=== PATIENT | female | born 1960 | race Two or more races ===

== ENCOUNTER 2016-09-01 11:34 | Emergency (ER) | payer BC, OTHER ==
[~2016-09-01] VITALS: Ht 162.6 cm; Wt 122.0 kg
[2016-09-01 12:44] LABS: Basophils # (auto) 0.1 uL; Basophils % (auto) 0.9 % (0.0-2.0); Eosinophils # (auto) 0.3 uL; Eosinophils % (auto) 4.5 % (0.0-7.0); Hematocrit 40.3 % (36.0-46.0); Hemoglobin 13.3 g/dL (12.2-16.2); Lymphocytes # (auto) 2.3 uL; Lymphocytes % (auto) 31.5 % (10.0-50.0); Mean Corpuscular Hemoglobin 28.8 pg (28.0-32.0); Mean Corpuscular Hgb Conc. 32.8 g/dL (32.0-36.0); Mean Corpuscular Volume 87.6 fL (80.0-100.0); Mean Platelet Volume 6.2 fL (7.4-10.4); Monocytes # (auto) 0.5 uL; Neutrophils % (auto) 56.1 % (37.0-80.0); Platelet Count (auto) 407 10^3/uL (140-450); Red Cell Distribution Width 16.1 % (11.6-16.0); White Blood Cell 7.1 10^3/uL (4.4-10.8)
[2016-09-01 13:08] LABS: Albumin 3.6 g/dL (3.4-5.0); BUN/Creatinine Ratio 17.5; Bilirubin, Total 0.6 mg/dL (0.2-1.0); Calcium 8.9 mg/dL (8.5-10.1); Magnesium 2.4 mg/dL (1.6-2.6); Potassium 3.6 mmol/L (3.5-5.1); Total Protein 8.4 g/dL (6.4-8.2)
[2016-09-01] MEDS ORDERED: METOCLOPRAMIDE HCL 5MG/ml INJ 2ml VIAL IV ONE (16:30)
[2016-09-01] MEDS ORDERED: KETOROLAC TROMETH 30 MG/ML 1ML VIAL IV ONE (16:30)
[2016-09-01] MEDS ORDERED: SODIUM CHLORIDE 0.9% 1,000 ML IV ONE (16:30)
[2016-09-01 17:00] VITALS: BP 178/98
== END 2016-09-01 20:12 | disposition home or self-care (01) ==
LOC: ER 11:34
DX: R10.13 Epigastric pain (principal); M19.90 Unspecified osteoarthritis, unspecified site; I10 Essential (primary) hypertension; R07.9 Chest pain, unspecified; R06.02 Shortness of breath; E66.9 Obesity, unspecified; Z68.42 Body mass index [BMI] 45.0-49.9, adult; Z90.710 Acquired absence of both cervix and uterus; Z88.6 Allergy status to analgesic agent
CPT/HCPCS: 36415; 71020; 74176; 80053; 83690; 83735; 84443; 84484; 85025; 93005; 94761; 96361; 96374; 99285; J1885; J7030

== ENCOUNTER 2023-10-23 17:47 | Emergency (ER) | payer BC, OTHER ==
[~2023-10-23] VITALS: Ht 160 cm; Wt 105.0 kg
[2023-10-23 18:50] VITALS: PULSE 50; RESP 10; O2SAT 97
[2023-10-23 19:00] VITALS: PULSE 50; RESP 10; O2SAT 97
[2023-10-23] MEDS: KETOROLAC TROMETH 30 MG/ML 1ML VIAL IV ONE (19:16)
[2023-10-23] MEDS: MAGNESIUM SULFATE 1GM/100ML 100 ML IV SCH (19:16)
[2023-10-23] MEDS: ONDANSETRON HCL 4 MG/2 ML VIAL IV ONE (19:16)
[2023-10-23 20:07] LABS: Basophils # (auto) 0.1 10 ^3/uL (0-0.2); Basophils % (auto) 0.7 % (0.0-2.0); Eosinophils # (auto) 0.1 10 ^3/uL (0-0.8); Hematocrit 40.2 % (36.0-46.0); Hemoglobin 13.6 g/dL (12.2-16.2); Lymphocytes # (auto) 1.2 10 ^3/uL (0.4-5.4); Lymphocytes % (auto) 12.6 % (10.0-50.0); Mean Corpuscular Hgb Conc. 33.8 g/dL (32.0-36.0); Mean Corpuscular Volume 94.4 fL (80.0-100.0); Monocytes # (auto) 0.6 10 ^3/uL (0-1.3); Monocytes % (auto) 5.7 % (0.0-12.0); Neutrophils # (auto) 7.8 10 ^3/uL (1.6-8.6); Nucleated Red Blood Cells % 0.2 %; Red Blood Cells 4.26 10^6/uL (4.0-5.20); Red Cell Distribution Width 14.2 % (11.8-14.3); White Blood Cell 9.7 10^3/uL (4.4-10.8)
[2023-10-23 20:10] LABS: Alanine Aminotransferase 18 U/L (7-40); Albumin 4.4 g/dL (3.2-4.8); Alkaline Phosphatase 91 U/L (46-116); Anion Gap 6 (5-15); Aspartate Aminotransferase 12 U/L (13-40); Bilirubin, Total 0.6 mg/dL (0.2-1.0); Blood Urea Nitrogen 12 mg/dL (9-23); Calcium 9.6 mg/dL (8.5-10.1); Carbon Dioxide 25 mmol/L (20-30); Chloride 108 mmol/L (98-107); Glucose 152 mg/dL (74-106); Potassium 4.2 mmol/L (3.5-5.1); Sodium 139 mmol/L (136-145); Total Protein 7.4 g/dL (5.7-8.2)
[2023-10-23] MEDS ORDERED: IBUP-1456 PO (20:40)
[2023-10-23] MEDS ORDERED: ACET-1304 PO (20:40)
[2023-10-23] MEDS ORDERED: TAMS-35 PO (20:40)
[2023-10-23] MEDS: hydrALAZINE HCL 20 MG/ML VL IV ONE ×2 (20:45→22:44)
[2023-10-23 21:00] VITALS: TEMP 97.9; O2SAT 97
[2023-10-23 21:29] LABS: Urine Bacteria FEW /hpf (None Seen); Urine Blood 1+ /uL (Negative); Urine Clarity Turbid (Clear); Urine Color Yellow (Yellow); Urine Mucus MODERATE (None Seen); Urine Protein, UAD 2+ (Negative); Urine Specific Gravity 1.037 (1.001-1.035); Urine Urobilinogen 2 mg/dL (Negative); Urine WBC 2 /hpf (0 - 5)
[2023-10-23] MEDS ORDERED: ZOFR4T PO (22:07)
[2023-10-23] MEDS ORDERED: CEPH500C PO (22:07)
[2023-10-23 22:39] VITALS: BP 149/77; PULSE 85; RESP 22
[2023-10-23] MEDS: HYDROmorphone HCL 2 MG/ML VL/or syr IV ONE (22:39)
[2023-10-23] MEDS: cefTRIAXone 1GM/50ML D5W 50 ML IV ONE (22:39)
== END 2023-10-23 23:43 | disposition home or self-care (01) ==
LOC: ER 17:47
DX: N20.1 Calculus of ureter (principal); I10 Essential (primary) hypertension; E78.5 Hyperlipidemia, unspecified; Z79.899 Other long term (current) drug therapy; Z88.5 Allergy status to narcotic agent; Z90.710 Acquired absence of both cervix and uterus; Z79.2 Long term (current) use of antibiotics
CPT/HCPCS: 36415; 74176; 80053; 81001; 83605; 85025; 93005; 96365; 96367; 96375; 96376; 99285; J0360; J0696; J1170; J1885; J2405; J3475